=== PATIENT | female | born 1985 | race Asian ===

== ENCOUNTER 2018-12-23 11:52 | Outpatient (CLI) | payer MEDICAID ==
[~2018-12-23] VITALS: Ht 160 cm; Wt 70.8 kg
[2018-12-23 11:59] VITALS: Ht 160 cm; Wt 70.8 kg
--- NOTE | 2018-12-23 14:03 | PN ---
Triage Information Date/Time Reason for visit: EFW for Possible LGA Weeks of Gestation 39+ /Para n/a Diabetes: none Hypertention: none Objective Heart Rate: 140's Contractions: None Disposition: Discharge Assessment/Plan Cx closed BPP 10/10 Breech presentation She wants to go home and come back for c/s at 6 PM as Per precautions discussed Questions answered MARQUITA WYNN M.D. Dec 23, 2018 14:03
--- NOTE | 2018-12-23 14:10 | TRIAGE ---
OB Triage Datetime Report Generated by CPN: 12/23/2018 14:09 Datetime: 12/23/2018 13:48 Vaginal Exam Dilatation (cms): 0.0 Exam By: KHEMANI Cervix, Consistency: Soft Cervix, Position: Midposition Datetime: 12/23/2018 12:02 Assessment Type: Triage Maternal Assessment Level of Consciousness: Keenly Alert, Responsive DTR's/Clonus: DTRs 2+; No Clonus Headache: Denies Blurred Vision: No Respiratory Effort: Unlabored; Regular Rhythm; Equal Expansion Breath Sounds, Left: Clear and Equal Breath Sounds, Right: Clear and Equal Nausea/Vomiting: Denies RUQ Epigastric Pain: Denies Lower Extremities Edema: None Degree: None Upper Extremities Edema: None Degree: None Facial Edema: None Fall Risk Assessment History of Falling: (0) No Secondary Diagnosis: (0) No Ambulatory Aid: (0) Bedrest/Nurse Assist IV Therapy: (0) No Gait: (0) Normal/Bedrest/Immobile Mental Status: (0) Oriented to Own Ability Fall Score: 0 Fall Risk Score Definition: No Risk: No action required Datetime: 12/23/2018 11:57 Time of Arrival: 12/23/2018 11:45 EGA: 39.1 Arrived By: Ambulatory Arrived From: Office Chief Complaint: PT. SENT FROM OFFICE FOR EVAL OF POSSIBLE LGA Movement: Present Contractions: Denies/Absent Rupture of Membranes: Denies Vaginal Bleeding: None Vaginal Discharge: Denies Recent Sexual Intercouse: Denies Abdominal Trauma: Not Applicable Patient Complaints: None Time Provider Notified: 12/23/2018 13:27 Provider Notified: LEISA Initial Plan: EFM/SVE/BPP/EFW
== END 2018-12-23 14:05 | disposition home or self-care (01) ==
LOC: OBT 11:52 → L-D 11:53 → OBT 14:05
PROVIDERS: ATTEND Obstetrics & Gynecology
DX: O26.843 Uterine size-date discrepancy, third trimester (principal); Z3A.39 39 weeks gestation of pregnancy
CPT/HCPCS: 76815; 76818; Z7500; G0463

== ENCOUNTER 2018-12-24 05:30 | Inpatient (IN) | payer MEDICAID ==
[~2018-12-24] VITALS: Ht 160 cm; Wt 70.8 kg
[2018-12-24 06:02] VITALS: Ht 160 cm; Wt 70.8 kg
[2018-12-24] MEDS ORDERED: LACTATED RINGER'S 1,000 ML IV SCH (06:05)
[2018-12-24] MEDS ORDERED: METHYLERGONOVINE 0.2 MG INJ IM PRN ×2 (06:30→09:00)
[2018-12-24] MEDS ORDERED: OXYTOCIN 30 UNITS/LR 500 ML IV SCH ×2 (06:30→08:42)
[2018-12-24] MEDS ORDERED: CEFAZOLIN 2 GM/50 ML (PMX) 50 ML IVPB SCH ×2 (06:30→09:00)
[2018-12-24] MEDS ORDERED: MISOPROSTOL 200 MCG TAB PR PRN ×2 (06:30→09:00)
[2018-12-24] MEDS ORDERED: OXYTOCIN 30 UNITS/LR 500 ML IV PRN ×2 (06:30→09:00)
[2018-12-24] MEDS ORDERED: CARBOPROST 250 MCG INJ IM PRN ×2 (06:30→09:00)
--- NOTE | 2018-12-24 07:12 | PREAC ---
Date/Time of Note Date/Time of Note DATE: 12/24/18 TIME: 07:11 Anesthesia Eval and Record Evaluation Time Pre-Procedure Interview DATE: 12/24/18 TIME: 07:11 Age 33 Sex female NPO: 8 hrs Preoperative diagnosis Primary due to Breech Presentation Planned procedure Past Medical History Past Medical History: Includes : : (1), Para: (0), Gestational age: (39) Surgery & Anesthesia Issues No known issue Meds Anticoagulation: No Beta Sang within 24 hr: No Reason Beta Sang not given: Pt. not on B-Sang No Active Prescriptions or Reported Meds Current Medications Lactated Ringer's 1,000 ml @ 125 mls/hr Q8H IV Last administered on 12/24/18at 06:53; Admin Dose 125 MLS/HR; Start 12/24/18 at 06:05 Cefazolin Sodium/ Dextrose 50 ml @ 100 mls/hr ONCE IVPB ; Start 12/24/18 at 06:30 Oxytocin/Lactated Ringer's 500 ml @ 125 mls/hr POST IV ; Start 12/24/18 at 06:30 Oxytocin/Lactated Ringer's 500 ml @ 0 mls/hr ONCE PRN IV .VAGINAL BLEEDING; Start 12/24/18 at 06:30 Methylergonovine Maleate (Methergine) 0.2 mg ONCE PRN IM .VAGINAL BLEEDING; Start 12/24/18 at 06:30 Carboprost Tromethamine (Hemabate) 250 mcg ONCE PRN IM .VAGINAL BLEEDING; Start 12/24/18 at 06:30 Misoprostol (Cytotec) 1,000 mcg ONCE PRN NC .VAGINAL BLEEDING; Start 12/24/18 at 06:30 Meds reviewed: Yes Allergies Coded Allergies: No Known Allergy (Unverified , 12/24/18) Allergies Reviewed: Yes Labs/Studies Labs Reviewed: Reviewed by anesthesiologist Result Diagram: 12/24/1830 Laboratory Tests 12/24/18 06:30 test: Positive Studies: ECG (n/a), CXR (n/a) Pre-procedure Exam Airway: Adequate mouth opening, Adequate thyromental dist Mallampati: Mallampati II Teeth: Normal Lung: Normal Heart: Normal ASA Physical Status ASA physical status: 2 Emergency: None Planned Anesthetic Neuraxial: Spinal Planned Pain Management Sub-arachniod narcotics, Parenteral pain med Pre-operative Attestations Prior to commencing anesthesia and surgery, the patient was re-evaluated, there was verification of: *The patient's identity *The results of appropriate recent lab work and preoperative vital signs *The above evaluation not changing prior to induction *Anesthetic plan, risk benefits, alternative and complications discussed with patient/family; questions answered; patient/family understands, accepts and wishes to proceed. EMEKA BALL MD Dec 24, 2018 07:12
[2018-12-24] MEDS ORDERED: CITRIC ACID/NA CITRATE 30 ML CUP PO ONE (07:30)
[2018-12-24] MEDS ORDERED: ONDANSETRON 4 MG INJ IV ONE (07:30)
[2018-12-24] MEDS ORDERED: OXYTOCIN 30 UNITS/LR 500 ML BAG IV ONE (07:36)
[2018-12-24] MEDS ORDERED: OXYTOCIN 10 UNIT INJ ONE (07:37)
[2018-12-24] MEDS ORDERED: morphine SULFATE/PF (10 MG/10 ML) INJ ONE (07:37)
[2018-12-24] MEDS ORDERED: PHENYLephrine (100 MCG/ML) 10ML SYG ONE (07:37)
[2018-12-24] MEDS ORDERED: METOCLOPRAMIDE 10 MG INJ ONE (08:09)
[2018-12-24] MEDS ORDERED: DEXAMETHASONE 4 MG/ML 1 ML INJ ONE (08:09)
[2018-12-24] MEDS ORDERED: KETOROLAC 30 MG INJ ONE (08:09)
[2018-12-24] MEDS ORDERED: EPHEDrine 25 MG/5 ML SYG ONE (08:21)
--- NOTE | 2018-12-24 08:40 | PAC ---
Date/Time of Note Date/Time of Note DATE: 12/24/18 TIME: 08:40 Post-Anesthesia Notes Post-Anesthesia Note Last documented vital signs T: 97.4 Activity: WNL Respiratory function: WNL Cardiovascular function: WNL Mental status: Baseline Pain reasonably controlled: Yes Hydration appropriate: Yes Nausea/Vomiting absent: Yes EMEKA BALL MD Dec 24, 2018 08:40
--- NOTE | 2018-12-24 08:42 | OPPN ---
Date/Time of Note Date/Time of Note DATE: 12/24/18 TIME: 08:37 Operative Report Planned Procedure Procedure date Dec 24, 2018 Procedure(s) primary low transverse CD Performed by see signature line [employer] Acquis[employer] Banker: NILESH EATON 2nd [employer] Banker none Anesthesiologist: EMEKA BALL MD Pre-procedure diagnosis iup at 39 wks ga, malpresentation, decline external cephalic version, desires elective CD [id number] Anesthesia Type: Pkaqi6f spinal Post-Procedure Post-procedure diagnosis same Findings a viable male 9/9 weight 7lb 7 oz. ROBBIE BREECH. normal uterus tubes ovaries Estimated Blood Loss: 500 - 600 mls (500) Specimen(s) none Grafts/Implant(s) none Complication(s) none TIFFANIE DE LA FUENTE MD Dec 24, 2018 08:42
[2018-12-24] MEDS ORDERED: KETOROLAC 30 MG INJ IV PRN (09:00)
[2018-12-24] MEDS ORDERED: ONDANSETRON 4 MG INJ IV PRN ×2 (09:00)
[2018-12-24] MEDS ORDERED: HYDROCODONE/APAP (5/325) TAB PO PRN (09:00)
[2018-12-24] MEDS ORDERED: ACETAMINOPHEN 500 MG TAB PO PRN (09:00)
[2018-12-24] MEDS ORDERED: DIPHENHYDRAMINE 50 MG INJ IV PRN (09:00)
[2018-12-24] MEDS ORDERED: morphine 2 MG INJ IV PRN ×2 (09:00)
[2018-12-24] MEDS ORDERED: FENTAnyl 50 MCG/ML VIAL IV PRN ×2 (09:00)
[2018-12-24] MEDS ORDERED: NALBUPHINE HCL (10 MG/1 ML) INJ IV PRN (09:00)
[2018-12-24] MEDS ORDERED: METOCLOPRAMIDE 10 MG INJ IV PRN (09:00)
[2018-12-24] MEDS ORDERED: OXYCODONE/ACETAMINOPHEN (5/325) TAB PO PRN ×2 (09:00)
[2018-12-24] MEDS ORDERED: EPHEDrine 25 MG/5 ML SYG IV PRN (09:00)
[2018-12-24] MEDS ORDERED: HYDROmorphONE 1 MG/5 ML IV SYRINGE IV PRN ×2 (09:00)
[2018-12-24] MEDS ORDERED: NALOXONE (0.4 MG/ML) INJ IV PRN (09:00)
[2018-12-24] MEDS ORDERED: ALBUMIN HUMAN 5% 250 ML IV PRN (09:00)
[2018-12-24] MEDS ORDERED: NACL 0.9% 3 ML SYG IV SCH (09:00)
[2018-12-24] MEDS ORDERED: HYDROmorphONE 0.5 MG/0.5 ML SYG IV PRN ×2 (09:00)
--- NOTE | 2018-12-24 09:29 | PREOPHP ---
DATE OF ADMISSION: 12/24/2018 HISTORY OF PRESENT ILLNESS: Ms. Ela Slater is a 33-year-old 1, para 0, EDC 12/29/2018 in trauterine at 39 weeks gestational age, admitted today for elective primary jeff arias to breech presentation. She denies any contractions, vaginal bleeding or discharge. Her care took place with Dr. Gordon. PAST MEDICAL HISTORY: None. MEDICATIONS: vitamins. PAST SURGICAL HISTORY: Appendectomy. OBSTETRIC HISTORY: Prima . GYNECOLOGIC HISTORY: 12, regular 3 to 4 days. She denies any sexually transmitted infections. Sexu ally active with 1 partner. SOCIAL HISTORY: She denies any smoking, drugs or alcohol. FAMILY HISTORY: None. REVIEW OF SYSTEMS: All within normal except history of present illness. PHYSICAL EXAMINATION: HEENT: Within normal. LUNGS: CTA bilateral. CARDIOVASCULAR: S1, S2, regular rhythm. ABDOMEN: Gravid, nontender. Negative CVA bilateral. EXTREMITIES: Negative edema. No calf tenderness. PELVIC: Vaginal exam deferred. heart tracing category 1. IMAGING STUDY: Ultrasound performed today, the fetus is in breech presentation. ASSESSMENT: Intrauterine at 39 weeks gestational age, fetus in breech presentation, declin ed external cephalic version, desires primary . PLAN: Consent for a primary . Risks, benefits and alternatives were explained. All questi ons were answered. Dictated By: TIFFANIE SNYDER/YOVANNY Conf#: [id number] DID#: [id number]
--- NOTE | 2018-12-24 09:32 | OPR ---
DATE OF OPERATION: 12/24/2018 PREOPERATIVE DIAGNOSIS: Intrauterine at 39 weeks gestational age, fetus in breech presentation. Desires elective primary . Declined external cephalic version. POSTOPERATIVE DIAGNOSIS: Intrauterine at 39 weeks gestational age, fetus in breech presentation. Desires elective primary . Declined external cephalic version. PROCEDURE: Primary low transverse delivery. SURGEON: Domingo Cervantes MD CAFETERIA ASSOCIATE: Dr. Solano. ANESTHESIA: Spinal. ESTIMATED BLOOD LOSS: 500 mL. COMPLICATIONS: None. FINDINGS: A viable male, 9 and 9 respectively at 1 and 5 minutes, weight 7 pounds 7 ounces in brian breech presentation. Normal uterus, tubes and ovaries. DESCRIPTION OF PROCEDURE: After explaining the risks, benefits and alternatives to the patient and consent signed in chart, the patient was taken to the operating room where spinal anesthesia was found to be adequate. She was then prepared and draped in normal sterile fashion in dorsal supine position with a leftward tilt. A Pfannenstiel skin incision was made with a scalpel and carried to the underlying of the fascia. The fascia was incised in midline, incision was extended laterally with William scissors. The superior aspect of the fascial incision was grasped with curved clamps, elevated and the underlying rectus muscle dissected off bluntly. Attention was then turned to the inferior aspect of the incision which in similar fashion was grasped, tented up with curved clamps and the rectus muscles dissected off bluntly. The rectus muscle was in midline, peritoneum identified, tented up, and sharply with Metzenbaum scissors. The incision was extended superiorly with good visualization of bladder. The bladder blade was inserted and an incision was made in the lower uterine segment with a scalpel and extended laterally. The fetus buttocks were delivered to the level of the scapula. The right arm was flipped across the chest and delivered. Similarly, the left arm was flipped across the chest and delivered. The head was delivered atraumatically. The nose and mouth were suctioned and cord clamped and cut and handed off to waiting position. The placenta was then removed and were cleared of all clots and debris. The uterine incision was repaired with 1-0 chromic in a running locked fashion. Second layer of same suture was used for imbrication after excellent hemostasis. The uterus was returned to the abdomen. The gutters were cleared of all clots. The peritoneum and rectus abdominis muscles were reapproximated with 2-0 Vicryl in an interrupted fashion. The fascia was reapproximated with 0 Vicryl in a running fashion. The subcutaneous tissue was reapproximated with 2- 0 plain gut in a running fashion. The skin was closed with absorbable kely. The patient tolerated the procedure well. Sponge, lap and needle counts were correct. The patient was taken to recovery room in stable condition. Dictated By: DOMINGO SNYDER/YOVANNY Conf#: [id number] DID#: [id number] MTDD
[2018-12-24 12:30] VITALS: BP 112/57; RESP 18
[2018-12-24] MEDS: IBUPROFEN 800 MG TAB PO SCH ×2 (12:56→22:00)
[2018-12-24 13:38] VITALS: BP 110/63; RESP 18
[2018-12-24 20:30] VITALS: BP 84/52; PULSE 85; RESP 19
[2018-12-24] MEDS ORDERED: LACTATED RINGER'S 1,000 ML IV PRN (23:00)
[2018-12-25 04:30] VITALS: BP 87/50; PULSE 78; RESP 19
[2018-12-25 07:30] VITALS: BP 106/62; PULSE 82; RESP 18
--- NOTE | 2018-12-25 08:13 | QN ---
Documentation Comment progress note pod 1 patient seen and evaluated no complaints vs stable afebrile ab dressing clean / dry no distention extremity no edema no calf tenderness a/ sp cd pod 1 stable, afebrile p/ iron supplement encourage ambulation repeat cbc in am TIFFANIE DE LA FUENTE MD Dec 25, 2018 08:13
[2018-12-25] MEDS: LANOLIN HPA 1 PKT TOP PRN (09:37)
[2018-12-25] MEDS: FERROUS SULFATE (EC) 325 MG TAB PO SCH ×2 (09:37→21:33)
[2018-12-25] MEDS: IBUPROFEN 800 MG TAB PO SCH ×2 (13:32→21:33)
[2018-12-25 15:41] VITALS: BP 107/59; PULSE 82; RESP 18
[2018-12-25 20:10] VITALS: BP 106/68; PULSE 80; RESP 18
[2018-12-26 04:30] VITALS: BP 105/67; PULSE 81; RESP 18
[2018-12-26] MEDS: IBUPROFEN 800 MG TAB PO SCH ×3 (05:38→21:45)
[2018-12-26 07:45] VITALS: BP 107/75; PULSE 63; RESP 18
[2018-12-26] MEDS: FERROUS SULFATE (EC) 325 MG TAB PO SCH ×2 (09:42→21:45)
[2018-12-26] MEDS: LANOLIN HPA 1 PKT TOP PRN (09:42)
[2018-12-26] MEDS: OXYCODONE/ACETAMINOPHEN (5/325) TAB PO PRN ×2 (16:31→23:41)
[2018-12-26 17:05] VITALS: BP 107/58; PULSE 79; RESP 18
[2018-12-26 20:30] VITALS: BP 119/74; PULSE 78; RESP 18
--- NOTE | 2018-12-26 21:08 | QN ---
Documentation Comment progress note pod 2 patient seen and evaluated no complaints vs stable afebrile ab c/d/i no distention extremity no edema no calf tenderness a/ sp cd pod 2 stable, afebrile p/discharge home tomorrow TIFFANIE DE LA FUENTE MD Dec 26, 2018 21:08
--- NOTE | 2018-12-26 21:11 | PD.PPDC ---
PROBATE JUDGE Discharge Instruction Condition [id number] Patient Condition: Yqyzs0t Fair Diet Qobos2Ny Diet: Xysqu3d Resume Regular Diet Activity/Restrictions [id number] Activity: Dauon9a Normal Activity May Shower Gqziw2Aq Restrictions: Vktqr7e No Exercising No Lifting No Driving No Sexual Activity Nothing in the Vagina No Velva No Tampons, douche Follow-up Follow-up with Physician: 2, Week/Weeks Return to clinic for [id number] CONTROL TOWER OPERATOR Instructions: Covpb6q Fever greater than 101 Chills Worsening abdominal pain Excessive Vaginal Bleeding More than 2 pads per hour Unable to tolerate diet [id number] OB Instructions: Jirzl0p Breast Tenderness Depression Blurried Vision Headache [id number] Surgical Instructions: Sydlk6n Incisional Drainage Incisional Redness TIFFANIE DE LA FUENTE MD Dec 26, 2018 21:11
[2018-12-27] MEDS: IBUPROFEN 800 MG TAB PO SCH (05:28)
[2018-12-27] MEDS: OXYCODONE/ACETAMINOPHEN (5/325) TAB PO PRN ×2 (05:28→12:07)
[2018-12-27 08:00] VITALS: BP 108/58; PULSE 71; RESP 20
--- NOTE | 2018-12-27 08:00 | DS ---
DATE OF ADMISSION: 12/24/2018 DATE OF DISCHARGE: 12/27/2018 PRIMARY DIAGNOSIS: Intrauterine at 39 weeks gestational age, fetus in breech presentation. Desires elective primary delivery. PROCEDURE: Primary low transverse delivery. CONDITION ON DISCHARGE: Stable. ACTIVITY: None per vagina, no heavy lifting x6 weeks. DIET: Regular. MEDICATIONS ON DISCHARGE: 1. Motrin. 2. Iron. 3. Percocet. 4. Colace. DISCHARGE SUMMARY: Ms. Slater underwent a primary low transverse delivery on 12/24/2018. She had a viable male, 9 and 9 respectively at 1 and 5 minutes, weight 7 pounds 7 ounces. She had an uneventful postop day #1 and #2. She was discharged on postop day #3. Her incision is clean, dry, intact. She is ambulating, tolerating diet, positive flatulence, positive bowel movement. She will follow up in the clinic in 2 weeks for /postop care. Dictated By: TIFFANIE SNYDER/YOVANNY Conf#: [id number] DID#: [id number]
[2018-12-27] MEDS: FERROUS SULFATE (EC) 325 MG TAB PO SCH (08:51)
[2018-12-27] MEDS: LANOLIN HPA 1 PKT TOP PRN (12:07)
--- NOTE | 2018-12-28 13:58 | DELSUM ---
Delivery Summary A-C Datetime Report Generated by CPN: 12/28/2018 13:58 DELIVERY PERSONNEL Sueding Machine Operator: Sommer, Aimee MATERNAL INFORMATION Delivery Anesthesia: Spinal Medications in Delivery: see anes. records Delivery QBL (ml): 700 Placenta Cultured: No Maternal Complications: None LABOR SUMMARY EDC: 12/29/2018 00:00 No. Babies in Womb: 1 Attempted: No Labor Anesthesia: Intrathecal LABOR INFORMATION Reason for Induction: Not Applicable Group B Beta Strep: Negative Antibiotics # of Doses: 1 Antibiotics Time of Last Dose: 12/24/2018 07:30 Steroids Given: None Reason Steroids Not Administered: Not Applicable MEMBRANES Membranes Rupture Method: Artificial Rupture of Membranes: 12/24/2018 08:05 Length of Rupture (hr): 0.00 Amniotic Fluid Color: Clear Amniotic Fluid Amount: Moderate Amniotic Fluid Odor: None STAGES OF LABOR Stage 3 hr: 0 Stage 3 min: 2 CSECTION DELIVERY Primary Indication: Breech Presentation Secondary Indication: N/A CSection Urgency: Elective CSection Incidence: Primary Labor: No Labor Elective: Nonelective CSection Incision: Lower Uterine Transverse BABY A INFORMATION Delivery Date/Time: 12/24/2018 08:05 Method of Delivery: Born in Route : No : N/A Forceps: N/A Vacuum Extraction: N/A Shoulder Dystocia : N/A SHOULDER DYSTOCIA BABY A Infant Delivery Date/Time: 12/24/2018 08:05 PRESENTATION/POSITION BABY A Presentation: Breech Cephalic Presentation: N/A Breech Presentation: J Carlos PLACENTA INFORMATION BABY A Placenta Delivery Time : 12/24/2018 08:07 Placenta Method of Delivery: Manual Removal Placenta Status: Delivered SCORES BABY A Heart Rate 1 min: >100 bpm Resp Effort 1 min: Good Cry Reflex Irritability 1 min: Cough/Sneeze/Pulls Away Muscle Tone 1 min: Active Motion Color 1 min: Body Nitro, Extremit Blue Resuscitation Effort 1 min: Tactile Stimulation SCORE 1 MIN: 9 Heart Rate 5 min: >100 bpm Resp Effort 5 min: Good Cry Reflex Irritability 5 min: Cough/Sneeze/Pulls Away Muscle Tone 5 min: Active Motion Color 5 min: Body Nitro, Extremit Blue Resuscitation Effort 5 min: Tactile Stimulation SCORE 5 MIN: 9 INFANT INFORMATION BABY A Gestational Age at Delivery: 39.2 Gestational Status: Full Term- 39- 40.6 Weeks Outcome : Liveborn, with signs of life Condition : Stable Infant Sex: Male IDENTIFICATION/MEDS BABY A ID Band Number: [id number] ID Band Location: Right Leg; Left Arm Sensor Applied: Yes Sensor Number: [id number] Sensor Location : Cord Clamp Vitamin K Given : Not Given Erythromycin Given: Not Given WEIGHT/LENGTH BABY A Birthweight (gm): 3385 Infant Weight (lb): 7 Infant Weight (oz): 7 Length (in): 20.00 Infant Length (cm): 50.80 CORD INFORMATION BABY A No. Cord Vessels: 3 Nuchal Cord : N/A Cord Blood Taken: Yes Suction: Mouth; Nose ASSESSMENT BABY A Infant Complications: None Physical Findings at Delivery: Within Normal Limits Respirations: Appears Normal Decorator Inspector/ALS Called : No Care By: Verito Garcia/ Aayush Chen Transferred To: [facility]
== END 2018-12-27 13:58 | disposition home or self-care (01) | DRG 788 ==
LOC: L-D 05:30 → MS1 12:17 → PP1 12-26 12:42
PROVIDERS: ADMIT Obstetrics & Gynecology; ATTEND Obstetrics & Gynecology
PROC: 10D00Z1 Extraction of Products of Conception, Low, Open Approach (ICD-10-PCS; principal; 2018-12-24)
DX: O32.1XX0 Maternal care for breech presentation, not applicable or unspecified (principal); Z3A.39 39 weeks gestation of pregnancy; Z37.0 Single live birth
CPT/HCPCS: 85025; 85610; 85730; 86592; 86850; 86900; 86901; 87340; 99464; J0690; J1100; J1200; J1885; J2274; J2370; J2405; J2590; J2765; J7120